=== PATIENT | male | born 1985 | race African-American/Black ===

== ENCOUNTER 2022-05-24 08:22 | Emergency (ER) | payer OTHER, SELFPAY ==
[2022-05-24 08:29] VITALS: BP 180/98; PULSE 75; RESP 18; TEMP 36.1; O2SAT 100
--- NOTE | 2022-05-24 08:37 | ED.URI ---
HPI - URI/Sore Throat General Chief Complaint: Upper Respiratory Infection Stated Complaint: Left shoulder pain Time Seen by Provider: 05/24/22 08:40 Source: patient and RN notes reviewed Mode of arrival: ambulatory Limitations: no limitations History of Present Illness HPI Narrative: 36 y/o male presented for c/o cough, nasal congestion and drainage for 3 days. Has been taking Dayquil and decongestant. Endorses his has been sick for 4 days with similar symptoms, and tested negative for flu and covid. Blood pressure is elevated on arrival, he has not taken BP med yet today. Denies headache, dizziness, chest pain, palpitations, wheezing, fever or chills. Patient also reports left shoulder pain for 2-3 weeks. Pain is worse in the under arm area. Describes pain as 'a pinch.' Reports pain and decreased ROM when raising the arm laterally. 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 Taking ibuprofen for symptoms. Denies radiating pain down the arm, numbness, tingling or weakness of the extremity. He is right hand dominant. MD elicited complaint: cough Related Data Home Medications Medication Instructions Recorded Confirmed amlodipine 5 mg tablet 5 mg PO DAILY 05/24/22 05/24/22 Allergies Allergy/AdvReac Type Severity Reaction Status Date / Time No Known Allergies Allergy Verified 05/24/22 08:45 Review of Systems Review of Systems: CONSTITUTIONAL: Denies malaise, chills, sweats, fever EYES: Denies visual changes, redness, or discharge ENT: Reports rhinorrhea, congestion, denies sinus pain, otalgia, sore throat CARDIOVASCULAR: Denies chest pain, palpitations, edema RESPIRATORY: Reports cough, post nasal drainage. Denies dyspnea GASTROINTESTINAL: Denies abdominal pain, nausea, vomiting, diarrhea SKIN: Denies rash or itching MUSCULOSKELETAL: Reports shoulder pain NEUROLOGIC: Denies headache Exam Narrative: GENERAL: well-appearing EYES: conjunctivae clear ENT: Mucous membranes moist. TM pearly mcnamara with dull light reflex bilaterally; no tragal tenderness. CHEST: Clear to auscultation, breath sounds equal. No wheezing, rhonchi, rales, or stridor. HEART: Regular rate and rhythm. No murmur heard. SKIN: Warm, dry, no rash. MUSC: Left arm with decreased ROM, pain reported with lateral extension and supination. Unable to laterally extend to 90 degrees. Tender to palpation to medial aspect of upper arm inferior to axilla. Full ROM with anterior and posterior movement and is able to reach over head. Left axilla without abscess or lymphadenopathy. No bony tenderness. Left hand and arm with normal strength and sensation. Cap refill <3seconds. pulses palpable and equal bilaterally. NEURO: Alert and oriented x3. PSYCH: Normal mood and affect Course Course Emergency Course: Patient is aware of diagnosis, understands and agrees to treatment plan. Anticipatory guidance given. Patient agrees to follow-up as directed and is aware of reasons to seek care at the emergency department. Portions of this record may have been created with voice recognition software Level of Care: Express Care Visit Vital Signs Vital signs: Vital Signs Temperature 97.0 F L 05/24/22 08:29 Pulse Rate 75 05/24/22 08:29 Respiratory Rate 18 05/24/22 08:29 Blood Pressure 180/98 H 05/24/22 08:29 Pulse Oximetry 100 05/24/22 08:29 Oxygen Delivery Room Air 05/24/22 08:29 Temperature 97.0 F L 05/24/22 08:29 Pulse Rate 75 05/24/22 08:29 Respiratory Rate 18 05/24/22 08:29 Blood Pressure 180/98 H 05/24/22 08:29 Pulse Oximetry 100 05/24/22 08:29 Oxygen Delivery Room Air 05/24/22 08:29 reviewed MDM - URI/Sore Throat MDM Narrative Medical decision making narrative: COVID and flu negative. BP rechecked 150/100. He has not taken amlodipine this morning and did take allergy decongestant. Discussed alternatives. Advised supportive measures and signs/symptoms to go to the ER. Pt is
== END 2022-05-24 09:23 | disposition home or self-care (01) ==
PROVIDERS: Emergency Provider Nurse Practitioner Family; PCP Family Medicine
DX: J06.9 Acute upper respiratory infection, unspecified (principal); M25.512 Pain in left shoulder; Z20.822 Contact with and (suspected) exposure to COVID-19
CPT/HCPCS: 87426; 87804; 99213; C9803; G0463

== ENCOUNTER 2022-07-09 10:58 | Emergency (ER) | payer OTHER, SELFPAY ==
[2022-07-09 11:08] VITALS: BP 142/76; PULSE 82; RESP 14; TEMP 36.8; O2SAT 99
[2022-07-09 11:11] VITALS: BP 142/76; PULSE 82; RESP 14; TEMP 36.8; O2SAT 99
--- NOTE | 2022-07-09 12:40 | ED.URI ---
HPI - URI/Sore Throat General Chief Complaint: Upper Respiratory Infection Stated Complaint: fever upset stomach cough Time Seen by Provider: 07/09/22 12:30 Source: patient, RN notes reviewed and old records reviewed Mode of arrival: ambulatory Limitations: no limitations History of Present Illness HPI Narrative: 36 year old male who presents to [facility] care with complaints of 2 day history of sore throat, body aches, fevers with night sweats, no energy and upset stomach.He reports that he has had Covid vaccinations and Booster and also flu shot this year. He reports that he has been taking Tylenol and Sudafed for his symptoms. MD elicited complaint: fever, sore throat, nasal congestion and other (upset stomach) Onset (ago): day(s) (2) Pain scale (0-10): 7 Able to tolerate fluids by mouth: Yes Treatments prior to arrival: acetaminophen and other (Sudafed) Related Data Home Medications Medication Instructions Recorded Confirmed amlodipine 5 mg tablet 5 mg PO DAILY 05/24/22 07/09/22 lisinopril 5 mg tablet 5 mg PO DAILY 07/09/22 07/09/22 Allergies Allergy/AdvReac Type Severity Reaction Status Date / Time No Known Allergies Allergy Verified 07/09/22 11:18 Review of Systems Review of Systems: CONSTITUTIONAL:Reports malaise, chills, sweats, or fever. EYES: Denies visual changes, redness, or discharge. ENT: Reports rhinorrhea, congestion, sinus pain,no otalgia positive for sore throat. CARDIOVASCULAR: Denies chest pain, palpitations, or edema. RESPIRATORY: Reports cough.? Denies dyspnea. GASTROINTESTINAL: Denies abdominal pain, nausea, vomiting, diarrhea, states stomach feels upset. SKIN: Denies rash or itching. MUSCULOSKELETAL: Reports myalgia. NEUROLOGIC: Denies headache. All systems reviewed & are unremarkable except as noted in HPI and below PMFSH Past Medical History Medical History (Updated 07/12/22 @ 11:53 by Jeanette Morse NP) Finger fracture surgical repair 5th finger right Hypertension Surgical History Surgical History (Updated 07/12/22 @ 11:47 by Jeanette Morse NP) S/P tonsillectomy and adenoidectomy Social History Social History (Updated 07/12/22 @ 11:40 by Jeanette Morse NP) Smoking packs per day: 0.5 Smoking cigarettes per day: 10.0 Years smoked: 6 Smoking pack-years: 3.00 Smoking status: Current every day smoker Alcohol intake: current Alcohol use details: social Substance use type: does not use Gender identity (if verbalized by the patient): Male Comments At time of signature, agree with nursing past medical, surgical, social and family history. There is no relevant family history pertinent to the presenting complaint Exam Narrative: GENERAL: Well-appearing, well-nourished, and in no acute distress. HEAD: Normocephalic EYES: PERRLA, conjunctivae clear ENT: Nares clear, turbinates edematous and erythematous, clear discharge. Mucous membranes moist. TM pearly mcnamara with dull light reflex bilaterally; no tragal tenderness. Oropharynx erythematous without lesions. Tonsils not present throat red and swollen and painful, without throat exudate, no drooling, no hoarseness, no trismus, uvula midline.post nasal drainage noted NECK: Supple. No lymphadenopathy CHEST: Clear to auscultation, breath sounds equal. No wheezing, rhonchi, rales, or stridor. No respiratory distress, speaks in full sentences.cough noted with SAO2 99% on room air HEART: Regular rate and rhythm. No murmur heard. SKIN: Warm, dry, no rash. NEURO: Alert and oriented x3. PSYCH: Normal mood and affect Course Course Emergency Course: Patient is aware of diagnosis, understands and agrees to treatment plan.? Anticipatory guidance given.? Patient agrees to follow-up as directed and is aware of reasons to seek care at the emergency department. Portions of this record may have been created with voice recognition software Level of Care: Express Care Visit Vital Signs
== END 2022-07-09 13:12 | disposition home or self-care (01) ==
PROVIDERS: Emergency Provider Registered Nurse; PCP Family Medicine
DX: J02.0 Streptococcal pharyngitis (principal); I10 Essential (primary) hypertension; F17.210 Nicotine dependence, cigarettes, uncomplicated
CPT/HCPCS: 87804; 99213; G0463

== ENCOUNTER 2023-12-11 15:05 | Emergency (ER) | payer OTHER, SELFPAY ==
--- NOTE | ~2023-12-11 | XR_ITS ---
EXAMINATION: [id number] DATE: 12/11/2023 15:58 INDICATION: Right infracostal chest pain. TECHNIQUE: A frontal inspiratory view of the chest and 5 views of the right ribs were obtained. COMPARISON: None FINDINGS: No rib fractures identified. No pneumothorax. No focal infiltrates, pleural effusion or pulmonary danae ma. Cardiomediastinal silhouette is normal. IMPRESSION: 1. No rib fracture or acute cardiopulmonary disease. Reviewed, dictated and finalized at location A.
[2023-12-11 15:15] VITALS: BP 150/89; PULSE 87; RESP 20; TEMP 36.8; O2SAT 99
--- NOTE | 2023-12-11 15:31 | ED.GENADULT ---
HPI - General Adult General Chief complaint: Wound/Laceration Stated complaint: R side abdominal pain Time Seen by Provider: 12/11/23 15:31 Source: patient, RN notes reviewed and old records reviewed Mode of arrival: ambulatory Limitations: no limitations History of Present Illness HPI narrative: 38 year old male presents to [facility] care with complaints of pain to the right upper abdomen and lateral abdomen area of varying degrees since yesterday evening. Patient reports that he coughed prior to pain starting and increased sharp pain when he bends over Patient reports that he presently has no nausea or vomiting or diarrhea.Patient admits to heavy alcohol usage for the past few years till 1 month ago. States he was having a lot of nausea and vomiting episodes and he quit drinking completely MD complaint: upper right abdominal pain and pain to Onset (ago): day(s) (since yesterday evening) Location: abdomen (right upper abdomen and infracostal region) Severity scale (1-10): 3 Quality: aching and sharp Related Data Home Medications Medication Instructions Recorded Confirmed amlodipine 5 mg tablet 5 mg PO DAILY 05/24/22 12/11/23 Allergies Allergy/AdvReac Type Severity Reaction Status Date / Time No Known Allergies Allergy Verified 12/11/23 15:32 Review of Systems Review of Systems: CONSTITUTIONAL: Denies fever, chills, or sweats. EYES: Denies visual changes, redness, or discharge. ENT: Denies rhinorrhea, congestion, sore throat, or otalgia. CARDIOVASCULAR: Denies chest pain, palpitations, or edema. RESPIRATORY: Denies cough or dyspnea. GASTROINTESTINAL: Right upper abdominal pain and infracostal area pain. no nausea, vomiting, or diarrhea. GENITOURINARY: Denies dysuria or hematuria. SKIN: Denies rash or itching. MUSCULOSKELETAL: Denies back pain, joint pain, or myalgia. NEUROLOGIC: Denies headache, numbness, or weakness. PSYCHIATRIC: Denies anxiety or depression. All systems reviewed & are unremarkable except as noted in HPI and below PMFSH Past Medical History Medical History (Updated 12/12/23 @ 16:30 by Jeanette Morse NP) Finger fracture surgical repair 5th finger right Hypertension Surgical History Surgical History (Updated 07/12/22 @ 11:47 by Jeanette Morse NP) S/P tonsillectomy and adenoidectomy Social History Social History (Updated 12/12/23 @ 17:22 by Jeanette Morse NP) Smoking packs per day: 0.5 Smoking cigarettes per day: 10.0 Years smoked: 6 Smoking pack-years: 3.00 Smoking status: Current every day smoker Alcohol intake: former Alcohol use details: no alcohol for one month was former drinking 2 pints of tequila and a couple of beers daily Substance use type: does not use Living arrangements: with family Gender identity (if verbalized by the patient): Male Comments At time of signature, agree with nursing past medical, surgical, social and family history. There is no relevant family history pertinent to the presenting complaint Exam Narrative: GENERAL: Well-appearing, well-nourished, obese,and in no acute distress. HEAD: Normocephalic, atraumatic. EYES: PERRLA and EOMI. ENT: Nares clear, no rhinorrhea or epistaxis. Mucous membranes moist.TM's normal throat pink with tonsils absent NECK: Supple.no lymphadenopathy CHEST: Clear to auscultation. No respiratory distress.SAO2 99% on room air HEART: Regular rate and rhythm. No murmur heard, normal peripheral pulses. ABDOMEN: Soft,tender to palpation upper abdomen and laterally, nondistended, normal active bowel sounds. EXTREMITIES: Normal range of motion. No edema. SKIN: Warm, dry, no rash. NEURO: No focal deficits. Alert and oriented x3. Course Course Emergency Course: Patient is aware of diagnosis, understands and agrees to treatment plan.? Anticipatory guidance given.? Patient agrees to follow-up as directed and is aware of reasons to seek care at the emergency department. Portions of this record ma
== END 2023-12-11 16:30 | disposition short-term general hospital (02) ==
PROVIDERS: Emergency Provider Registered Nurse
DX: R10.11 Right upper quadrant pain (principal); I10 Essential (primary) hypertension; F17.210 Nicotine dependence, cigarettes, uncomplicated
CPT/HCPCS: 71101; 99213; G0463